=== PATIENT | male | born 1940 | race Caucasian/White ===

== ENCOUNTER 2017-03-30 17:09 | Inpatient (IN) | payer MEDICARE ==
[~2017-03-30] VITALS: Ht 177.8 cm; Wt 97.2 kg
[~2017-03-30 17:09] MED LIST: ASPI-611 PO; BACDS PO; CARV-50 PO; CHOL100010 PO; GLUC1CAP69 PO; NITR0.4T51 SL; OMEG1CAP21 PO; POTA20TA19 PO; QUIN1TAB PO; SIMV10TA2 PO; VITA-67 PO; VITA400C19 PO; VITC500T PO
[2017-03-30 17:52] LABS: BASOPHILS % (AUTO) 0.3 % (0-1); EOSINOPHILS # (AUTO) 0.2 X10'3 (0-0.9); EOSINOPHILS % (AUTO) 2.8 % (0-6); HEMATOCRIT 39.2 % (42.0-52.0); HEMOGLOBIN 13.5 g/dl (14.0-17.9); LYMPHOCYTES # (AUTO) 1.1 X10'3 (1.1-4.8); LYMPHOCYTES % (AUTO) 14.4 % (21-51); MEAN CORPUSCULAR HEMOGLOBIN 33.6 PG (27.0-31.0); MEAN CORPUSCULAR HGB CONC 34.6 % (33.0-36.5); MEAN CORPUSCULAR VOLUME 97.2 FL (78-98); MEAN PLATELET VOLUME 7.3 FL (7.4-10.4); MONOCYTES # (AUTO) 0.4 X10'3 (0-0.9); MONOCYTES % (AUTO) 5.9 % (2-12); NEUTROPHILS # (AUTO) 5.6 X10'3 (1.8-7.7); NEUTROPHILS % (AUTO) 76.6 % (42-75); PLATELET COUNT 156 X10'3 (140-440); RED BLOOD COUNT 4.03 X10'6 (4.70-6.10); RED CELL DISTRIBUTION WIDTH 13.6 % (11.5-14.5); WHITE BLOOD COUNT 7.4 X10'3 (4.5-11.0)
[2017-03-30 18:02] LABS: PARTIAL THROMBOPLASTIN TIME 25 SECONDS (22-32); PROTHROMBIN TIME 10.6 SECONDS (9.0-12.0)
[2017-03-30 18:07] LABS: ALANINE AMINOTRANSFERASE 46 U/L (12-78); ALBUMIN/GLOBULIN RATIO 1.1 (1.1-1.5); ALKALINE PHOSPHATASE 67 IU/L (46-116); ANION GAP 5 (8-16); ASPARTATE AMINO TRANSFERASE 69 U/L (10-37); BILIRUBIN,TOTAL 0.5 MG/DL (0.1-1.0); BLOOD UREA NITROGEN 20 MG/DL (7-18); BUN/CREATININE RATIO 16.7 (5.4-32.0); CALCIUM 8.8 MG/DL (8.5-10.1); CHLORIDE 106 MMOL/L (99-107); GLUCOSE 142 MG/DL (70-104); POTASSIUM 4.1 MMOL/L (3.5-5.1); SODIUM 140 MMOL/L (135-145); TOTAL CARBON DIOXIDE 29.4 MMOL/L (24-32); TOTAL PROTEIN 7.6 G/DL (6.4-8.2); eGFR 59 ML/MIN
[2017-03-30] MEDS ORDERED: morphine 2 MG/ML inj. syringe IV PRN ×2 (19:05)
[2017-03-30] MEDS ORDERED: acetaminophen 650mg rectal suppository RC PRN (19:05)
[2017-03-30] MEDS ORDERED: HYDROcodone/acetaminophen 10/325mg tab PO PRN (19:05)
[2017-03-30] MEDS ORDERED: acetaminophen 325mg tablet PO PRN ×2 (19:05)
[2017-03-30] MEDS ORDERED: HYDROcodone/acetaminophen 5mg/325mg tablet PO PRN (19:05)
[2017-03-30] MEDS ORDERED: normal saline 1000ml 1,000 ML IV SCH (19:05)
[2017-03-30] MEDS ORDERED: bisacodyl 10mg suppository rectal RC PRN (19:05)
[2017-03-30] MEDS ORDERED: HYDROmorphone 1 mg/ml syringe IV PRN ×2 (19:05)
[2017-03-30] MEDS ORDERED: metoclopramide 5 mg/ml inj IV PRN (19:05)
[2017-03-30] MEDS ORDERED: diphenhydrAMINE 50 mg/ml inj IV PRN (19:05)
[2017-03-30] MEDS ORDERED: mag hydrox/Alum hydrox/simeth 30ml oral suspension PO PRN (19:05)
[2017-03-30] MEDS ORDERED: magnesium hydroxide 30ml (MOM) UD suspension PO PRN (19:05)
[2017-03-30] MEDS ORDERED: diphenhydrAMINE 25mg capsule PO PRN (19:05)
[2017-03-30] MEDS ORDERED: morphine 5 MG/ML injection IV PRN ×2 (19:14→19:15)
[2017-03-30 19:42] LABS: MAGNESIUM 2.2 MG/DL (1.5-2.4)
[2017-03-30] MEDS: ondansetron/PF 4mg/2ml inj IV PRN (20:32)
[2017-03-30] MEDS ORDERED: temazepam 15mg capsule PO PRN (21:00)
[2017-03-30 22:20] VITALS: BP 131/76
[2017-03-30] MEDS: docusate sod 100mg capsule PO SCH (22:21)
[2017-03-30] MEDS: atorvastatin 10mg tablet PO SCH ×2 (22:21→22:29)
[2017-03-30] MEDS: carvedilol 6.25mg tablet PO SCH ×2 (22:21→22:26)
[2017-03-30] MEDS: enoxaparin 30mg/0.3ml syringe SQ SCH (22:22)
[2017-03-31] VITALS (9 sets, daily range): BP systolic 92–155; BP diastolic 49–85
[2017-03-31] MEDS ORDERED: nitroGLYCERIN 0.4mg SUBLingual tab SL PRN (05:25)
[2017-03-31] MEDS ORDERED: aminophylline 250mg/10ml inj. IV PRN (05:25)
[2017-03-31] MEDS ORDERED: metoprolol tartrate 1mg/ml inj IV PRN (05:25)
[2017-03-31] MEDS ORDERED: regadenoson 0.4mg/5ml syringe IV ONE ×3 (05:25→11:20)
[2017-03-31 06:10] LABS: BASOPHILS % (AUTO) 0.1 % (0-1); EOSINOPHILS # (AUTO) 0.1 X10'3 (0-0.9); EOSINOPHILS % (AUTO) 0.6 % (0-6); HEMATOCRIT 39.2 % (42.0-52.0); HEMOGLOBIN 13.8 g/dl (14.0-17.9); LYMPHOCYTES # (AUTO) 0.7 X10'3 (1.1-4.8); LYMPHOCYTES % (AUTO) 8.2 % (21-51); MEAN CORPUSCULAR HEMOGLOBIN 33.7 PG (27.0-31.0); MEAN CORPUSCULAR HGB CONC 35.1 % (33.0-36.5); MEAN PLATELET VOLUME 7.7 FL (7.4-10.4); MONOCYTES # (AUTO) 0.7 X10'3 (0-0.9); MONOCYTES % (AUTO) 7.3 % (2-12); NEUTROPHILS # (AUTO) 7.6 X10'3 (1.8-7.7); NEUTROPHILS % (AUTO) 83.8 % (42-75); PLATELET COUNT 152 X10'3 (140-440); RED BLOOD COUNT 4.09 X10'6 (4.70-6.10); RED CELL DISTRIBUTION WIDTH 13.6 % (11.5-14.5); WHITE BLOOD COUNT 9.1 X10'3 (4.5-11.0)
[2017-03-31 06:26] LABS: ALANINE AMINOTRANSFERASE 132 U/L (12-78); ALBUMIN 3.7 G/DL (3.4-5.0); ALBUMIN/GLOBULIN RATIO 1.1 (1.1-1.5); ALKALINE PHOSPHATASE 90 IU/L (46-116); ANION GAP 6 (8-16); ASPARTATE AMINO TRANSFERASE 169 U/L (10-37); BILIRUBIN,TOTAL 1.3 MG/DL (0.1-1.0); BLOOD UREA NITROGEN 15 MG/DL (7-18); CALCIUM 8.6 MG/DL (8.5-10.1); CHLORIDE 106 MMOL/L (99-107); CHOL/HDL RATIO 4.7 (0.00-4.99); CHOLESTEROL 156 MG/DL (0-200); GLUCOSE 117 MG/DL (70-104); HDL CHOLESTEROL 33 MG/DL (35-60); LDL CHOLESTEROL 110 MG/DL (50-100); POTASSIUM 4.1 MMOL/L (3.5-5.1); SODIUM 140 MMOL/L (135-145); TOTAL CARBON DIOXIDE 28.2 MMOL/L (24-32); TOTAL PROTEIN 7.2 G/DL (6.4-8.2); TRIGLYCERIDES 97 MG/DL (20-135); eGFR 73 ML/MIN
[2017-03-31] MEDS ORDERED: pantoprazole 40mg Tablet.DR PO SCH (07:30)
[2017-03-31] MEDS: docusate sod 100mg capsule PO SCH (08:04)
[2017-03-31] MEDS: enoxaparin 30mg/0.3ml syringe SQ SCH (08:04)
[2017-03-31] MEDS: ondansetron/PF 4mg/2ml inj IV PRN (08:14)
[2017-03-31] MEDS ORDERED: aspirin 81mg tab.chew PO SCH (08:30)
[2017-03-31] MEDS ORDERED: aminophylline inj. 0 ML IV ONE (11:20)
== END 2017-03-31 17:24 | disposition home or self-care (01) | DRG 313 ==
LOC: ER 17:09 → ED HOLD 19:05 → SUR 3N 22:15
PROVIDERS: ADMIT Family Medicine; ATTEND Internal Medicine
DX: R07.89 Other chest pain (principal); I48.91 Unspecified atrial fibrillation; I35.0 Nonrheumatic aortic (valve) stenosis; K59.00 Constipation, unspecified; I10 Essential (primary) hypertension; Z95.2 Presence of prosthetic heart valve; Z79.82 Long term (current) use of aspirin; Z79.899 Other long term (current) drug therapy; Z87.891 Personal history of nicotine dependence
CPT/HCPCS: 36415; 71045; 71250; 74176; 78452; 80053; 80061; 83735; 83880; 84484; 85025; 85610; 85730; 87070; 93005; 93017; 99285; A9500; J0280; J1650; J2405; J3490; J7030

== ENCOUNTER 2022-04-29 12:13 | Day surgery (SDC) | payer MEDICARE ==
[2022-04-29] VITALS (7 sets, daily range): BP systolic 102–129; BP diastolic 60–74
[~2022-04-29] VITALS: Ht 175.3 cm; Wt 81.8 kg
[~2022-04-29 12:13] MED LIST changes: -ASPI-611 PO; -BACDS PO; -CARV-50 PO; +CARV3.122 PO; -CHOL100010 PO; +FLO0.4C PO; -GLUC1CAP69 PO; +HYDR-3965 PO; +LEVE500T PO; -NITR0.4T51 SL; -OMEG1CAP21 PO; -POTA20TA19 PO; -QUIN1TAB PO; -SIMV10TA2 PO; -VITA-67 PO; -VITA400C19 PO; -VITC500T PO
[2022-04-29] MEDS ORDERED: proCHLORperazine 10 MG/2 ml inj ONE (13:42)
[2022-04-29] MEDS ORDERED: glucagon, human recombinant 1mg kit ONE (13:43)
[2022-04-29] MEDS ORDERED: MIDAZolam 1 MG/ML 5ML VIAL ONE (13:43)
[2022-04-29] MEDS ORDERED: fentaNYL/PF 50MCG/1 ML 2ML syringe ONE (13:43)
[2022-04-29] MEDS ORDERED: LIDOcaine Viscous 15ml cup ONE (13:44)
[2022-04-29] MEDS ORDERED: iohexol 300mg/ml 100ml inj. ONE (13:44)
[2022-04-29] MEDS ORDERED: diphenhydrAMINE 50 mg/ml inj ONE (14:24)
[2022-04-29] MEDS ORDERED: levoFLOXACIN-Levaquin 500mg/D5 100 ML IV ONE (14:34)
== END 2022-04-29 16:10 | disposition home or self-care (01) ==
LOC: GI LAB 12:13
PROVIDERS: ATTEND Internal Medicine Gastroenterology
DX: Z46.59 Encounter for fitting and adjustment of other gastrointestinal appliance and device (principal); K83.8 Other specified diseases of biliary tract; I25.10 Atherosclerotic heart disease of native coronary artery without angina pectoris; Z95.2 Presence of prosthetic heart valve; Z98.890 Other specified postprocedural states; Z79.899 Other long term (current) drug therapy
CPT/HCPCS: 43264; 43275; 74328; C1769; C1889; G0500; J1200; J1956; J2250; J3010; J7030; Q9967; Z7512; Z7610; 99152; A4620; J0780; J1610